=== PATIENT | female | born 1990 | race Caucasian/White ===

== ENCOUNTER 2016-03-12 14:04 | Outpatient (RCR) | payer BC ==
--- OUTSIDE RECORDS SUMMARY | 2015-12-22 13:24 | XMS REPORT | Continuity of Care Document ---
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 Name Role Phone NO, LOCAL PHYSICIAN PCP Unavailable Insurance Providers Payer Name Policy Number Subscriber Name Relationship Enter Insurance Name [id number] Olive Buckley 18 Self / Same As Patient Advance Directives Directive Response Recorded Date/Time Advance Directives No 03/02/14 4:40pm Health Care Power of Tool Engine Lathe Set Up Operator No 03/02/14 4:40pm Organ Donor Yes 03/02/14 4:40pm Resuscitation Status Full Code 03/02/14 4:40pm Problems Medical Problems Problem Onset Date Status Anxiety hyperventilation Unknown Active Unknown Active Nausea and vomiting in Unknown Active Anxiety hyperventilation Unknown Active UTI (urinary tract infection) Unknown Active Anxiety hyperventilation Unknown Active Medications Medication Dose Route Sig Days/Qty Instructions Order Date Discontinued Date Status Ondansetron Hcl 4 Mg SL EVERY 4HRS 10 Qty FOR NAUSEA AND VOMITING Active Nitrofurantoin Macrocrystals 1 Each PO TWICE A DAY 20 Qty 09/04/13 Discontinued Doxylamine/Pyridoxine HCl 1 Each PO BEDTIME 03/02/14 Active Vit#96/Ferrous Fum/Fa 1 Each PO DAILY 03/02/14 Active [antidepressant] 10 Mg PO DAILY PRN ANXIETY 03/02/14 Active Prochlorperazine 25 Mg [place] 14 PRN NAUSEA 10 Qty 03/04/14 Active Famotidine (Pepcid) 1 Each PO TWICE A DAY 60 Qty 03/04/14 Active Alprazolam 0.5 Mg PO THREE TIMES A DAY PRN ANXIETY 30 Qty 03/04/14 Active Prochlorperazine Maleate 1 Tab PO THREE TIMES A DAY PRN NAUSEA 60 Qty 03/04/14 Active Social History Social History Problem Response Recorded Date/Time Alcohol Use Denies Use 09/04/2013 7:47pm Recreational Drug Use Y STOPPED X3 WKS AGO 09/04/2013 7:47pm Recent Foreign Travel No 03/02/2014 4:46pm Smoking Status Current Someday Smoker 03/02/2014 4:43pm Do you dip or chew tobacco? No 03/02/2014 4:43pm Query Response Start Date Stop Date Smoking Status Current Someday Smoker Hospital Discharge Instructions No hospital discharge instructions. Plan of Care No plan of care. Functional Status No functional status results. Allergies, Adverse Reactions, Alerts Allergen Type Severity Reaction Status Last Updated hydrocodone ([id number]) Allergy Mild Active 09/04/13 Immunizations No immunization records. Vital Signs Acute Vital Signs Vital Response Date/Time Temperature (Fahrenheit) 97.9 degrees F (97.6 - 99.5) Temperature (Calculated Celsius) 36.19545 degrees C (36.4 - 37.5) Temperature Source Tympanic Pulse Rate (adult) 69 bpm (60 - 90) Respiratory Rate 20 bpm (12 - 24) O2 Sat by Pulse Oximetry 98 % (88 - 100) Blood Pressure 118/69 mm Hg Pain Pain Intensity 0 Height (Feet) 5 feet Height (Inches) 5.00 inches Height (Calculated Centimeters) 165.560772 cm Weight (Pounds) 179 pounds Weight (Calculated Grams) 84637.035 gm Weight (Calculated Kilograms) 81.227079 kilograms Calculated BMI 29.78 Results Laboratory Results Test Name Result Units Flags Reference Collection Date/Time Result Date/ Time Comments White Blood Count 14.7 10^3/uL H 4.3-11.0 03/04/2014 6:24am 03/04/2014 6: 30am Red Blood Count 3.59 10^6/uL L 4.35-5.85 03/04/2014 6:24am 03/04/2014 6: 30am Hemoglobin 11.1 G/DL L 11.5-16.0 03/04/2014 6:24am 03/04/2014 6:30am Hematocrit 32 % L 35-52 03/04/2014 6:03/04/2014 6:30am Mean Corpuscular Volume 90 FL 80-99 03/04/2014 6:03/04/2014 6: 30am Mean Corpuscular Hemoglobin 31 PG 25-34 03/04/2014 6:03/04/2014 6: 30am Mean Corpuscular Hemoglobin Concent 34 G/DL 32-36 03/04/2014 6: 6:30am Red Cell Distribution Width 13.2 % 10.0-14.5 03/04/2014 6:2014 6:30am Platelet Count 198 10^3/uL 130-400 03/04/2014 6:03/04/2014 6:30am Mean Platelet Volume 10.4 FL 7.4-10.4 03/04/2014 6:03/04/2014 6: 30am Neutrophils (%) (Auto) 83 % H 42-75 03/04/2014 6:03/04/2014 6:30am Lymphocytes (%) (Auto) 10 % L 12-44 03/04/2014 6:03/04/2014 6:30am Monocytes (%) (Auto) 7 % 0-12 03/04/2014 6:03/04/2014 6:30am Eosinophils (%) (Auto) 0 % 0-10 03/04/2014 6:03/04/2014 6:30am Basophils (%) (Auto) 0 % 0-10 03/04/2014 6:03/04/2014 6:30am Neutrophils # (Auto) 12.2 X 10^3 H 1.8-7.8 03/04/2014 6:03/04/2014 6 :30am Lymphocytes # (Auto) 1.4 X 10^3 1.0-4.0 03/04/2014 6:03/04/2014 6: 30am Monocytes # (Auto) 1.0 X 10^3 0.0-1.0 03/04/2014 6:03/04/2014 6: 30am Eosinophils # (Auto) 0.0 10^3/uL 0.0-0.3 03/04/2014 6:03/04/2014 6 :30am Basophils # (Auto) 0.0 10^3/uL 0.0-0.1 03/04/2014 6:24am 03/04/2014 6: 30am Neutrophils % (Manual) 74 % 03/02/2014 3:55pm 03/02/2014 4:26pm Band Neutrophils 1 % 03/02/2014 3:55pm 03/02/2014 4:26pm Lymphocytes % (Manual) 22 % 03/02/2014 3:55pm 03/02/2014 4:26pm Monocytes % (Manual) 3 % 03/02/2014 3:55pm 03/02/2014 4:26pm Eosinophils % (Manual) 0 % 03/02/2014 3:55pm 03/02/2014 4:26pm Basophils % (Manual) 0 % 03/02/2014 3:55pm 03/02/2014 4:26pm Blood Morphology Comment NORMAL 03/02/2014 3:55pm 03/02/2014 4: 26pm Sodium Level 139 MMOL/L 135-145 03/04/2014 6:24am 03/04/2014 6:57am Potassium Level 3.5 MMOL/L L 3.6-5.0 03/04/2014 6:24am 03/04/2014 6:57am Chloride Level 111 MMOL/L H 98-107 03/04/2014 6:24am 03/04/2014 6:57am Carbon Dioxide Level 19 MMOL/L L 21-32 03/04/2014 6:24am 03/04/2014 6: 57am Blood Urea Nitrogen 3 MG/DL L 7-18 03/04/2014 6:24am 03/04/2014 6:57am Creatinine 0.51 MG/DL L 0.60-1.30 03/04/2014 6:24am 03/04/2014 6:57am BUN/Creatinine Ratio 6 03/04/2014 6:24am 03/04/2014 6:57am Estimat Glomerular Filtration Rate > 60 03/04/2014 6:24am 2014 6:57am GFR INTERPRETIVE DATA UNITS FOR ESTIMATED GFR (eGFR): mL/min/1.73 M2 REFERENCE RANGE FOR ESTIMATED GFR (eGFR) eGFR NORMAL eGFR >60 MODERATELY DECREASED eGFR 30-59 SEVERLY DECREASED eGFR 15-29 KIDNEY FAILURE <15 (OR DIALYSIS) Glucose Level 132 MG/DL H 70-105 03/04/2014 6:24am 03/04/2014 6:57am Calcium Level 8.3 MG/DL L 8.5-10.1 03/04/2014 6:24am 03/04/2014 6:57am Total Bilirubin 1.0 MG/DL 0.1-1.0 03/02/2014 9:15pm 03/02/2014 10:00pm Direct Bilirubin 0.3 MG/DL 0.0-0.3 03/02/2014 9:15pm 03/02/2014 10: 00pm Indirect Bilirubin 0.7 MG/DL 03/02/2014 9:15pm 03/02/2014 10:00pm Alkaline Phosphatase 104 U/L 40-136 03/02/2014 3:55pm 03/02/2014 4: 32pm Aspartate Amino Transf (AST/SGOT) 14 U/L 5-34 03/02/2014 3:55pm 2014 4:32pm Alanine Aminotransferase (ALT/SGPT) 15 U/L 0-55 03/02/2014 3:55pm 03/02 4:32pm Total Protein 6.4 G/DL 6.4-8.2 03/02/2014 3:55pm 03/02/2014 4:32pm Albumin 3.2 G/DL 3.2-4.5 03/02/2014 3:55pm 03/02/2014 4:32pm Thyroid Stimulating Hormone (TSH) 0.76 UIU/ML 0.35-4.94 03/03/2014 5: 08am 03/03/2014 9:54am Procedures No known history of procedures. Encounters Encounter Location Date/Time Departed Clinic Via [facility] 03/02/14 3:10pm
[2015-12-22 14:18] LABS: BASOPHILS # (AUTO) 0.1 10^3/uL (0.0-0.1); BASOPHILS % (AUTO) 1 % (0-10); EOSINOPHILS # (AUTO) 0.5 10^3/uL (0.0-0.3); EOSINOPHILS % (AUTO) 4 % (0-10); LYMPHOCYTES # (AUTO) 2.4 X 10^3 (1.0-4.0); LYMPHOCYTES % (AUTO) 19 % (12-44); MEAN CORPUSCULAR HEMOGLOBIN 32 PG (25-34); MEAN CORPUSCULAR HGB CONC 34 G/DL (32-36); MEAN CORPUSCULAR VOLUME 94 FL (80-99); MEAN PLATELET VOLUME 10.2 FL (7.4-10.4); MONOCYTES # (AUTO) 0.8 X 10^3 (0.0-1.0); MONOCYTES % (AUTO) 7 % (0-12); NEUTROPHILS # (AUTO) 8.7 X 10^3 (1.8-7.8); NEUTROPHILS % (AUTO) 70 % (42-75); PLATELET COUNT 259 10^3/uL (130-400); RED BLOOD COUNT 4.93 10^6/uL (4.35-5.85); RED CELL DISTRIBUTION WIDTH 13.4 % (10.0-14.5); RETICULOCYTE % 1.33 % (0.50-2.40); WHITE BLOOD COUNT 12.4 10^3/uL (4.3-11.0)
[2015-12-22 14:57] LABS: ALANINE AMINOTRANSFERASE 43 U/L (0-55); ALBUMIN 4.1 G/DL (3.2-4.5); ANION GAP 9 MMOL/L (5-14); ASPARTATE AMINO TRANSFERASE 31 U/L (5-34); BLOOD UREA NITROGEN 11 MG/DL (7-18); BUN/CREATININE RATIO 15; CALCIUM 9.5 MG/DL (8.5-10.1); CARBON DIOXIDE 23 MMOL/L (21-32); CHLORIDE 106 MMOL/L (98-107); CREATININE SERUM 0.73 MG/DL (0.60-1.30); GFR ESTIMATED > 60; GLUCOSE 93 MG/DL (70-105); LACTATE DEHYDROGENASE 202 U/L (125-220); SODIUM 138 MMOL/L (135-145); TOTAL PROTEIN 7.1 G/DL (6.4-8.2)
[2015-12-22 15:44] LABS: BAND NEUTROPHILS 1 %; BASOPHILS % (MANUAL) 0 %; EOSINOPHILS % (MANUAL) 5 %; LYMPHOCYTES % (MANUAL) 14 %; NEUTROPHILS % (MANUAL) 70 %; POIKILOCYTOSIS SLIGHT; REACTIVE LYMPHOCYTES 5 %
[2015-12-22 15:45] LABS: STOMATOCYTES SLIGHT
[2015-12-22 16:32] LABS: %SAT TOTAL IRON BINDING CAPIC 26 % (15-50); TIBC 404 ug/dL (280-380)
[2015-12-23 06:56] LABS: FERRITIN 78 ng/mL (15-150); UIBC 298 ug/dL (55-450)
[2016-01-23 14:52] LABS: BASOPHILS # (AUTO) 0.1 10^3/uL (0.0-0.1); BASOPHILS % (AUTO) 1 % (0-10); EOSINOPHILS # (AUTO) 0.3 10^3/uL (0.0-0.3); EOSINOPHILS % (AUTO) 2 % (0-10); LYMPHOCYTES # (AUTO) 2.8 X 10^3 (1.0-4.0); LYMPHOCYTES % (AUTO) 20 % (12-44); MEAN CORPUSCULAR HEMOGLOBIN 32 PG (25-34); MEAN CORPUSCULAR HGB CONC 34 G/DL (32-36); MEAN CORPUSCULAR VOLUME 93 FL (80-99); MEAN PLATELET VOLUME 10.5 FL (7.4-10.4); MONOCYTES # (AUTO) 1.2 X 10^3 (0.0-1.0); MONOCYTES % (AUTO) 8 % (0-12); NEUTROPHILS # (AUTO) 9.5 X 10^3 (1.8-7.8); NEUTROPHILS % (AUTO) 69 % (42-75); PLATELET COUNT 290 10^3/uL (130-400); RED BLOOD COUNT 4.85 10^6/uL (4.35-5.85); WHITE BLOOD COUNT 13.8 10^3/uL (4.3-11.0)
[~2016-03-12 14:04] MED LIST: ALPR0.25 PO; ALPR0.5T PO; CEPH500C PO; CODE-54 PO; DOXY1TAB3 PO; FAMO20TA5 PO; FRS325T PO; IBP600T1 PO; LORA0.5T34 PO; NITR-65 PO; ONDA-42 SL; PEDI1TAB29 PO; PRC25SU PR; PREN1TAB25 PO; PROC10TA23 PO; Sertraline Hcl PO; antidepressant PO
[2016-03-12 14:35] LABS: BASOPHILS # (AUTO) 0.1 10^3/uL (0.0-0.1); BASOPHILS % (AUTO) 1 % (0-10); EOSINOPHILS # (AUTO) 0.4 10^3/uL (0.0-0.3); EOSINOPHILS % (AUTO) 3 % (0-10); LYMPHOCYTES # (AUTO) 2.9 X 10^3 (1.0-4.0); LYMPHOCYTES % (AUTO) 21 % (12-44); MEAN CORPUSCULAR HEMOGLOBIN 31 PG (25-34); MEAN CORPUSCULAR HGB CONC 33 G/DL (32-36); MEAN CORPUSCULAR VOLUME 94 FL (80-99); MEAN PLATELET VOLUME 10.6 FL (7.4-10.4); MONOCYTES # (AUTO) 0.8 X 10^3 (0.0-1.0); MONOCYTES % (AUTO) 6 % (0-12); NEUTROPHILS # (AUTO) 9.4 X 10^3 (1.8-7.8); NEUTROPHILS % (AUTO) 69 % (42-75); PLATELET COUNT 244 10^3/uL (130-400); RED CELL DISTRIBUTION WIDTH 13.2 % (10.0-14.5); WHITE BLOOD COUNT 13.6 10^3/uL (4.3-11.0)
[2016-03-12 15:14] LABS: ALANINE AMINOTRANSFERASE 46 U/L (0-55); ANION GAP 9 MMOL/L (5-14); ASPARTATE AMINO TRANSFERASE 27 U/L (5-34); BILIRUBIN,TOTAL 0.7 MG/DL (0.1-1.0); BLOOD UREA NITROGEN 12 MG/DL (7-18); BUN/CREATININE RATIO 15; CARBON DIOXIDE 26 MMOL/L (21-32); CHLORIDE 103 MMOL/L (98-107); CREATININE SERUM 0.81 MG/DL (0.60-1.30); GFR ESTIMATED > 60; GLUCOSE 110 MG/DL (70-105); LACTATE DEHYDROGENASE 216 U/L (125-220); POTASSIUM 3.9 MMOL/L (3.6-5.0); SODIUM 138 MMOL/L (135-145); TOTAL PROTEIN 6.8 G/DL (6.4-8.2)
== END 2016-03-21 | disposition home or self-care (01) ==
LOC: ONC 14:04
PROVIDERS: ATTEND Internal Medicine Hematology & Oncology
DX: E83.119 Hemochromatosis, unspecified (principal); F41.9 Anxiety disorder, unspecified; F32.9 Major depressive disorder, single episode, unspecified; F17.210 Nicotine dependence, cigarettes, uncomplicated; Z79.899 Other long term (current) drug therapy
CPT/HCPCS: 36415; 80053; 81270; 82728; 83540; 83615; 85007; 85025; 85027; 85045; 99213; 99214

== ENCOUNTER 2016-04-23 13:51 | Outpatient (RCR) | payer BC ==
--- OUTSIDE RECORDS SUMMARY | 2016-04-23 13:55 | XMS REPORT | Continuity of Care Document ---
Author Author [facility] Organization [facility] Address Unknown Phone Unavailable Care Team Providers Care Control Clerk Subassembly Name Role Phone NO, LOCAL PHYSICIAN PCP Unavailable Insurance Providers Payer Name Policy Number Subscriber Name Relationship Enter Insurance Name [id number] Olive Buckley 18 Self / Same As Patient Advance Directives Directive Response Recorded Date/Time Advance Directives No 03/02/14 4:40pm Health Care Power of Soft Mud Molder No 03/02/14 4:40pm Organ Donor Yes 03/02/14 [...] PRN ANXIETY 03/02/14 Active Prochlorperazine 25 Mg [place] 14 PRN NAUSEA 10 Qty 03/04/14 Active [...] Type Severity Reaction Status Last Updated hydrocodone ([id number]) Allergy Mild Active 09/04/13 Immunizations No immunization records. Vital Signs Acute Vital Signs Vital Response Date/Time Temperature (Fahrenheit) 97.9 degrees F (97.6 - 99.5) Temperature (Calculated Celsius) 36.46487 degrees C (36.4 - 37.5) Temperature Source Tympanic Pulse Rate (adult) 69 bpm (60 - 90) Respiratory Rate 20 bpm (12 - 24) O2 Sat by Pulse Oximetry 98 % (88 - 100) Blood Pressure 118/69 mm Hg Pain Pain Intensity 0 Height (Feet) 5 feet Height (Inches) 5.00 inches Height (Calculated Centimeters) 165.575855 cm Weight (Pounds) 179 pounds Weight (Calculated Grams) 13692.035 gm Weight (Calculated Kilograms) 81.958648 kilograms Calculated BMI 29.78 Results Laboratory Results [...] Encounters Encounter Location Date/Time Departed Clinic Via [facility] 03/02/14 3:10pm
[2016-04-23 14:11] LABS: BASOPHILS # (AUTO) 0.1 10^3/uL (0.0-0.1); BASOPHILS % (AUTO) 1 % (0-10); EOSINOPHILS # (AUTO) 0.3 10^3/uL (0.0-0.3); EOSINOPHILS % (AUTO) 3 % (0-10); LYMPHOCYTES # (AUTO) 2.8 X 10^3 (1.0-4.0); LYMPHOCYTES % (AUTO) 27 % (12-44); MEAN CORPUSCULAR HEMOGLOBIN 31 PG (25-34); MEAN CORPUSCULAR HGB CONC 34 G/DL (32-36); MEAN CORPUSCULAR VOLUME 92 FL (80-99); MEAN PLATELET VOLUME 10.3 FL (7.4-10.4); MONOCYTES # (AUTO) 0.8 X 10^3 (0.0-1.0); MONOCYTES % (AUTO) 8 % (0-12); NEUTROPHILS # (AUTO) 6.5 X 10^3 (1.8-7.8); NEUTROPHILS % (AUTO) 62 % (42-75); PLATELET COUNT 257 10^3/uL (130-400); RED BLOOD COUNT 5.02 10^6/uL (4.35-5.85); RED CELL DISTRIBUTION WIDTH 13.5 % (10.0-14.5); RETICULOCYTE % 1.23 % (0.50-2.40); WHITE BLOOD COUNT 10.6 10^3/uL (4.3-11.0)
[2016-04-23 14:50] LABS: BAND NEUTROPHILS 1 %; BASOPHILS % (MANUAL) 0 %; EOSINOPHILS % (MANUAL) 7 %; LYMPHOCYTES % (MANUAL) 22 %; NEUTROPHILS % (MANUAL) 62 %
== END 2016-07-22 | disposition home or self-care (01) ==
LOC: ONC 13:51
PROVIDERS: ATTEND Internal Medicine Hematology & Oncology
DX: E83.119 Hemochromatosis, unspecified (principal); F41.9 Anxiety disorder, unspecified; F32.9 Major depressive disorder, single episode, unspecified; F17.210 Nicotine dependence, cigarettes, uncomplicated; Z79.899 Other long term (current) drug therapy
CPT/HCPCS: 36415; 85007; 85027; 85045